=== PATIENT | male | born 1975 | race Caucasian/White ===

== ENCOUNTER → 2018-01-03 10:00 | Outpatient (CLI) | payer OTHER, SELFPAY ==
[2018-01-03 11:14] LABS: Add Manual Diff / Slide Review NO; Basophils Percent Auto 0.7 % (0-2); Eosinophils Percent Auto 2.5 % (2-4); Hematocrit 44.8 % (41-53); Hemoglobin 15.5 g/dL (13.5-17.5); Lymphocytes Percent Auto 32.1 % (25-40); Mean Corpuscular HGB Conc 34.6 % (30-36); Mean Corpuscular Volume 86.9 fL (80-100); Monocytes Percent Auto 6.3 % (3-14); Neutrophils Absolute Auto 3700 /uL (3000-5900); Neutrophils Percent Auto 58.4 % (50-75); Platelet Count 295 X10^3/uL (150-400); Red Blood Cell Count 5.16 X10^6/uL (4.5-5.9); Red Cell Distribution Width 12.9 % (11.6-14.8); White Blood Cell Count 6.3 X10^3/uL (4.5-11.0)
[2018-01-03 12:04] LABS: Alanine Aminotransferase 25 IU/L (21-72); Albumin 4.7 g/dL (3.5-5.0); Albumin Globulin Ratio 1.7 (1.0-2.8); Alkaline Phosphatase 66 U/L (38-126); Aspartate Aminotransferase 20 IU/L (17-59); BUN Creatinine Ratio 16.7 (6-22); Bilirubin Total 0.5 mg/dL (0.2-1.3); Blood Urea Nitrogen 15 mg/dL (9-20); Calcium 10.2 mg/dL (8.4-10.2); Carbon Dioxide 32 mmol/L (22-32); Chloride 99 mmol/L (98-107); Cholesterol 251 mg/dL (140-199); Estimated Glomerular Filt Rate > 60.0 mL/min (>60); Globulin 2.7 g/dL (1.7-4.1); Glucose 92 mg/dL (70-100); HDL Cholesterol 57 mg/dL (40-60); HEMOLYSIS 31 (0-50); LDL Cholesterol Calculated 168 mg/dL (<100); Potassium 5.2 mmol/L (3.4-5.1); Sodium 142 mmol/L (137-145); Total Protein 7.4 g/dL (6.3-8.2); Triglycerides 130 mg/dL (35-150)
[2018-01-03 12:09] LABS: Thyroid Stimulating Hormone 1.95 uIU/mL (0.47-4.68)
== END ==
PROVIDERS: PCP Internal Medicine; Visit Provider Internal Medicine
DX: Z00.00 Encounter for general adult medical examination without abnormal findings (principal)
CPT/HCPCS: 36415; 80053; 80061; 84443; 85025; G0103

== ENCOUNTER → 2018-02-22 11:47 | Outpatient (CLI) | payer OTHER, SELFPAY | PROVIDERS: PCP Internal Medicine; Visit Provider Internal Medicine | DX: L02.31 Cutaneous abscess of buttock (principal); L02.91 Cutaneous abscess, unspecified; L03.317 Cellulitis of buttock | CPT/HCPCS: 87070; 87075; 87077; 87147; 87186; 87205 ==

== ENCOUNTER → 2018-02-27 12:54 | Outpatient (CLI) | payer OTHER, SELFPAY ==
--- NOTE | 2018-02-27 12:56 | DI.US.S_ITS ---
PROCEDURE: US EXTREMITY NONVASC LOWER RT INDICATIONS: ABCESS OF RIGHT GLUTEAL REGION TECHNIQUE: Real-time scanning was performed of the right buttock, with image documentation. COMPARISON: None. FINDINGS: Ultrasound was performed in the area of interest. No fluid collection is present IMPRESSION: No fluid collection is present in the right gluteal region. Dictated by: John Barry M.D. on 02/27/2018 at 14:18 Approved by: John Barry M.D. on 02/27/2018 at 14:21
== END ==
PROVIDERS: PCP Internal Medicine; Visit Provider Internal Medicine
DX: L02.31 Cutaneous abscess of buttock (principal)
CPT/HCPCS: 76882

== ENCOUNTER → 2020-04-23 12:13 | Outpatient (CLI) | payer OTHER, SELFPAY ==
--- NOTE | 2020-04-23 12:14 | DI.RAD.S_ITS ---
PROCEDURE: XR KNEE LT 3V INDICATIONS: knee pain TECHNIQUE: 3 views of the knee were acquired. COMPARISON: None. FINDINGS: Bones: No fractures or dislocations. No suspicious bony lesions. Soft tissues: Small joint effusion. No suspicious soft tissue calcifications. IMPRESSION: Small knee joint effusion. No evidence acute bony abnormality of the left knee. If clinical suspicion and/or symptoms persist, further assessment with repeat plain films, or advanced imaging (e.g., CT, MRI, or bone scan) may be helpful for further assessment. Dictated by: Ramy Zambrano M.D. on 04/23/2020 at 14:36 Approved by: Ramy Zambrano M.D. on 04/23/2020 at 14:37
== END ==
PROVIDERS: PCP Family Medicine; Referring Provider Physician Assistant; Visit Provider Physician Assistant
DX: M25.562 Pain in left knee (principal); M25.462 Effusion, left knee
CPT/HCPCS: 73562

== ENCOUNTER → 2024-10-30 09:12 | Outpatient (CLI) | payer OTHER, SELFPAY ==
[2024-10-30 10:43] LABS: Cholesterol 278 mg/dL (140-199); Glucose 104 mg/dL (70-100); HDL Cholesterol 49 mg/dL (40-60); LDL Cholesterol Calculated 196 mg/dL (<100); Triglycerides 166 mg/dL (35-150)
== END ==
PROVIDERS: PCP Family Medicine; Referring Provider Family Medicine; Visit Provider Family Medicine
DX: Z13.9 Encounter for screening, unspecified (principal)
CPT/HCPCS: 36415; 80061; 82947